=== PATIENT | female | born 1945 | race African-American/Black ===

== ENCOUNTER 2020-08-08 18:44 | Emergency (ER) | payer MEDICARE, SELFPAY ==
[2020-08-08 18:43] VITALS: BP 164/80; PULSE 79; RESP 16; TEMP 37.1; O2SAT 99
--- NOTE | 2020-08-08 20:07 | ED.GENADULT ---
HPI - General Adult General Chief complaint: Extremity Injury, Lower Stated complaint: joint pain, dxed with gout Time Seen by Provider: 08/08/20 18:50 Source: patient Mode of arrival: EMS Limitations: no limitations History of Present Illness HPI narrative: Patient states she was diagnosed with her primary care provider with bilateral knee arthritis or gout and she was prescribed tramadol and prednisone. Patient states she has not yet started the prednisone but she does have it at home. Patient states that she called her primary care provider and was instructed to take 2 tramadol's and a Tylenol extra strength which she did just before EMS brought her to the emergency department. Patient states now her pain is greatly improved and she now wants to go home. Patient denies fever, chills, nausea, vomiting, diarrhea. Patient states she does not feel that she needs blood work for further evaluation in emergency department. Related Data Allergies Allergy/AdvReac Type Severity Reaction Status Date / Time No Known Allergies Allergy Verified 08/08/20 18:49 Review of Systems Review of Systems: Narrative: CONSTITUTIONAL: Denies fever, chills, or sweats. EYES: Denies visual changes, redness, or discharge. ENT: Denies rhinorrhea, congestion, sore throat, or otalgia. CARDIOVASCULAR: Denies chest pain, palpitations, or edema. RESPIRATORY: Denies cough or dyspnea. GASTROINTESTINAL: Denies abdominal pain, nausea, vomiting, or diarrhea. GENITOURINARY: Denies dysuria or hematuria. SKIN: Denies rash or itching. MUSCULOSKELETAL: Bilateral knee pain denies back pain or myalgia. NEUROLOGIC: Denies headache, numbness, dizziness, or weakness. PSYCHIATRIC: Denies anxiety or depression. Exam Narrative: Exam Narrative: GENERAL: Well-appearing, well-nourished, and in no acute distress. HEAD: Normocephalic, atraumatic. EYES: PERRLA and EOMI. CHEST: Clear to auscultation. No respiratory distress. No wheezes rales or rhonchi HEART: Regular rate and rhythm. No murmur heard. Normal peripheral pulses. ABDOMEN: Soft, nontender, nondistended, normal active bowel sounds. EXTREMITIES: Bilateral knees are swollen, erythema not appreciated. Patient does slightly flex and extend the knees. There is no sign of abscess or fluctuance. SKIN: Warm, dry, no rash. NEURO: No focal deficits. Alert and oriented x3. PSYCH: Normal mood and affect. Course Vital Signs Vital signs: Vital Signs Temperature 98.8 F 08/08/20 18:43 Pulse Rate 79 08/08/20 18:43 Respiratory Rate 16 08/08/20 18:43 Blood Pressure 164/80 H 08/08/20 18:43 Pulse Oximetry 99 08/08/20 18:43 Temperature 98.8 F 08/08/20 18:43 Pulse Rate 79 08/08/20 18:43 Respiratory Rate 16 08/08/20 18:43 Blood Pressure 164/80 H 08/08/20 18:43 Pulse Oximetry 99 08/08/20 18:43 Medical Decision Making MDM Narrative Medical decision making narrative: Patient states she took her pain medication as directed by her primary care just before being brought in by the EMS team. Patient states her pain has now greatly improved and she wants to go home. Patient declines blood testing or further evaluation emergency department. Patient states she also has prednisone at home prescribed by her primary care but she has not yet started them. Instructed patient of the need to take her medications as directed by her primary care provider so that she can improve. Patient and her family verbalized understanding and agreement with plan. They deny any other needs or concerns. They agreed to return the patient to the emergency department if she develops any worsening or emergent symptoms. Differential Diagnosis Differential Diagnosis: Gout, arthritis, septic joint, fracture, sprain, strain Vital Signs Vital Signs: Vital Signs Temperature 98.8 F 08/08/20 18:43 Pulse Rate 79 08/08/20 18:43 Respiratory Rate 16 08/08/20 18:43 Blood Pressure 164/80 H 08/08/20 18:43 Pulse Oximetry 99 08/08/20 18
[2020-08-08 20:57] VITALS: BP 159/78; PULSE 74; RESP 20; O2SAT 96
== END 2020-08-08 20:59 | disposition home or self-care (01) ==
PROVIDERS: Emergency Provider Emergency Medicine
DX: M25.562 Pain in left knee (principal); M25.561 Pain in right knee
CPT/HCPCS: 99281

== ENCOUNTER 2023-05-15 11:27 | Emergency (ER) | payer MEDICARE, SELFPAY ==
--- NOTE | ~2023-05-15 | XR_ITS ---
EXAMINATION: XR shoulder RT min 2V DATE: 05/15/2023 14:47 INDICATION: Right shoulder pain. TECHNIQUE: 4 views of right shoulder were obtained. COMPARISON: None. FINDINGS: Bone alignment is normal. No fracture. Glenohumeral joint is normal. There is moderate acro mioclavicular joint osteoarthritis. IMPRESSION: 1. Moderate right acromioclavicular joint osteoarthritis. Reviewed, dictated and finalized at location E.
--- NOTE | ~2023-05-15 | CT_ITS ---
EXAMINATION: CT cervical spine wo con DATE: 05/15/2023 14:52 INDICATION: Neck pain. TECHNIQUE: Computed tomography (CT) of the cervical spine was performed without intravenous contrast. Automated exposure control and iterative reconstruction technique were employed. The dose-length pro duct was 503.54 mGy-cm. COMPARISON: None FINDINGS: There is a 2.2 cm nodule in left thyroid lobe. There is 2 mm anterolisthesis of C5 on C6. V ertebral body heights are normal. There is severely decreased disc height from C3-C4 through C6-C7 wi th endplate remodeling. The following disc levels are specifically discussed: C2-C3: There is mild bilateral uncovertebral joint osteoarthritis. There is moderate right and severe left facet joint osteoarthritis. There is mild left neural foraminal stenosis. There is no central c anal stenosis. C3-C4: There is severe bilateral uncovertebral joint osteoarthritis. There is moderate bilateral face t joint osteoarthritis. There is mild bilateral neural foraminal stenosis. There is moderate central canal stenosis. C4-C5: There is severe bilateral uncovertebral joint osteoarthritis. There is severe bilateral facet joint osteoarthritis. There is mild right and moderate left neural foraminal stenosis. There is moder ate central canal stenosis. C5-C6: There is severe right and moderate left uncovertebral joint osteoarthritis. There is severe bi lateral facet joint osteoarthritis. There is moderate right and mild left neural foraminal stenosis. There is mild central canal stenosis. C6-C7: There is severe bilateral uncovertebral joint osteoarthritis. There is severe bilateral facet joint osteoarthritis. There is mild bilateral neural foraminal stenosis. There is mild central canal stenosis. C7-T1: There is no uncovertebral joint osteoarthritis. There is severe bilateral facet joint osteoart hritis. There is mild bilateral neural foraminal stenosis. There is no central canal stenosis. IMPRESSION: 1. No fracture. 2. Severe cervical spondylosis. Reviewed, dictated and finalized at location E.
[2023-05-15 11:34] VITALS: BP 168/106; PULSE 76; RESP 20; TEMP 36.4; O2SAT 100
[2023-05-15 13:58] VITALS: BP 194/101; PULSE 93; O2SAT 100
--- NOTE | 2023-05-15 14:11 | ED.GENADULT ---
HPI - General Adult General Chief complaint: Fall Stated complaint: fall 1 mo ago, R shoulder/B neck pain Time Seen by Provider: 05/15/23 13:18 Source: patient Mode of arrival: ambulatory Limitations: no limitations History of Present Illness HPI narrative: This is a 77-year-old female who presents to the ED with chief complaint of chronic neck pain and right shoulder pain. Triage note mentions a fall 1 month ago but the patient states that she had her fall over a year ago. She states that she has been dealing with neck pain and chronic right shoulder pain ever since that fall. She states this week it has been hurting her a little bit more. She reports the pain became worse Friday and has been about the same ever since but wanted to get checked out today. She reports neck pain is worsened with leftward and rightward rotation of the neck. Shoulder pain is worsened with range of motion of that shoulder. Denies any recent injuries, trauma or falls. Denies fevers, chills, nausea, numbness, weakness, headache. She is here with her niece who is helping give history and checks up on her at their [facility] community. Related Data Allergies Allergy/AdvReac Type Severity Reaction Status Date / Time No Known Allergies Allergy Verified 05/15/23 14:01 Review of Systems Review of Systems: All systems as dictated in HPI Exam Narrative: GENERAL: Well-appearing, well-nourished, and in no acute distress. HEAD: Normocephalic, atraumatic. EYES: PERRLA and EOMI. ENT: Nares clear, no rhinorrhea or epistaxis. Mucous membranes moist. Oropharynx without tonsillar hypertrophy exudate or other lesions. NECK: Supple. No adenopathy or masses. Negative meningeal signs. CHEST: No respiratory distress. Clear to auscultation. No wheezes rales or rhonchi HEART: Regular rate and rhythm. No murmur heard. Normal peripheral pulses. ABDOMEN: Soft, nontender, nondistended, normal active bowel sounds. MSK: There is tenderness throughout the cervical spine, worse in the right paraspinal muscles. No bony deformities or step-offs. Pain is worsened with leftward and rightward rotation of the neck. no midline thoracic, lumbar, sacral spine tenderness. Right shoulder has tenderness to palpation throughout, worse over the AC joint. Decreased active range of motion due to pain. No swelling of the shoulder. SKIN: Warm, dry, no rash. No erythema, warmth throughout the neck or shoulder. No lesions. No bruising. NEURO: Alert and oriented x3. No focal deficits. PSYCH: Normal mood and affect. Course Vital Signs Vital signs: Vital Signs Temperature 97.5 F L 05/15/23 11:34 Pulse Rate 76 05/15/23 11:34 Respiratory Rate 20 05/15/23 11:34 Blood Pressure 168/106 H 05/15/23 11:34 Pulse Oximetry 100 05/15/23 11:34 Oxygen Delivery Room Air 05/15/23 11:34 Temperature 97.5 F L 05/15/23 11:34 Pulse Rate 72 05/15/23 16:06 Respiratory Rate 18 05/15/23 16:06 Blood Pressure 179/93 H 05/15/23 16:06 Pulse Oximetry 100 05/15/23 16:06 Oxygen Delivery Room Air 05/15/23 11:34 Medical Decision Making MDM Narrative Medical decision making narrative: This is a 77-year-old female who presents to the ED with chief complaint of chronic right neck and shoulder pain ongoing for the past year and worse in the past couple of days. Vitals show elevated blood pressure but otherwise normal. Exam reveals tenderness throughout the neck, worse on the right side. Tenderness to the right shoulder as well. No neurodeficits. CT cervical spine shows diffuse degenerative disc disease. Right shoulder x-ray shows severe arthritis at the right AC joint. Symptoms are certainly consistent with degenerative changes as they are chronic. She has no recent falls or injuries. Instructed to take Tylenol arthritis and follow-up with her primary care doctor. Pt will be discharged in stable condition. Return precautions given and supportive measures dis
[2023-05-15] MEDS: HYDROcodone/acetaminophen (*CRX) 5-325 MG TABLET 1 TAB PO (14:57)
[2023-05-15 16:06] VITALS: BP 179/93; PULSE 72; RESP 18; O2SAT 100
== END 2023-05-15 16:00 | disposition home or self-care (01) ==
PROVIDERS: Emergency Provider Physician Assistant
DX: M50.30 Other cervical disc degeneration, unspecified cervical region (principal); M19.011 Primary osteoarthritis, right shoulder; M48.02 Spinal stenosis, cervical region; M47.816 Spondylosis without myelopathy or radiculopathy, lumbar region
CPT/HCPCS: 72125; 73030; 99284; A9270

== ENCOUNTER 2023-07-04 12:39 | Emergency (ER) | payer MEDICARE, SELFPAY ==
--- NOTE | ~2023-07-04 | XR_ITS ---
EXAMINATION: XR tibia fibula LT 2V INDICATION: Left lower extremity wound TECHNIQUE: Two views of the left tibia and fibula are obtained on four radiographs. COMPARISON: None available FINDINGS: There is no fracture. There is advanced osteoarthritis at the knee and ankle. An enchondrom a is noted in the distal tibia. There is an apparent soft tissue defect medial to the distal tibia wi thout associated underlying osseous abnormality. Calcified atherosclerosis is noted. IMPRESSION: 1. Apparent soft tissue defect medial to the distal tibia without underlying osseous abnormality. Reviewed, dictated and finalized at location F. IMPRESSION: 1. Apparent soft tissue defect medial to the distal tibia without underlying os seous abnormality.
--- NOTE | ~2023-07-04 | XR_ITS ---
EXAMINATION: XR chest 2V 07/04/2023 16:21 INDICATION: Weakness. PROCEDURE: 2 view chest COMPARISON: No prior studies for comparison. FINDINGS: The lungs are clear. The cardiomediastinal silhouette is within normal limits. There are no pleural effusions. There is no pneumothorax suspected. IMPRESSION: 1: NO ACUTE CARDIOPULMONARY DISEASE. Reviewed, dictated and finalized at location A.
[2023-07-04 12:42] VITALS: BP 162/108; PULSE 92; RESP 20; TEMP 36.8; O2SAT 100
--- NOTE | 2023-07-04 15:19 | ECG_ITS ---
Measurements Intervals [place] Rate: 79 P: 62 OH: 186 QRS: -24 QRSD: 88 T: -83 QT: 244 QTc: 280 Interpretive Statements REDUCED ECG QUALITY BECAUSE OF BASELINE ARTIFACT SINUS RHYTHM LOW QRS VOLTAGE IN PRECORDIAL LEADS [QRS DEFLECTION < 1.0 mV IN CHEST LEADS] PREVIOUS ANTERIOR WALL INFARCTION ABNORMAL ECG NO PREVIOUS ECG AVAILABLE FOR COMPARISON Electronically Signed On 07-05-2023 8:47:52 CDT by Tito Baum M.D.
--- NOTE | 2023-07-04 18:55 | ED.GENADULT ---
HPI - General Adult General Chief complaint: Wound/Laceration Stated complaint: leg wound Time Seen by Provider: 07/04/23 18:39 History of Present Illness HPI narrative: Patient is a 77-year-old female with history of arthritis here with multiple complaints including pain with urination, wound on left puentes, right shoulder pain. Patient states that she is intermittently had wounds over her bilateral shins over the last several years. She states that recently she developed a opening in the chronic wound she has in her left puentes. She notes that today it drained a small amount of brown foul-smelling fluid. She denies any recent trauma, no fever or chills. Patient states that her dysuria began yesterday. She notes she is having some burning with urination, denies any rashes. She normally wears depends at home for chronic incontinence. She denies any significant abdominal pain. Denies any flank pain. Finally she is complaining of some right shoulder pain. This has been present for quite some time and it is unchanged. No new trauma. No cough, congestion, fever, chills, chest pain, shortness of breath. Related Data Allergies Allergy/AdvReac Type Severity Reaction Status Date / Time No Known Allergies Allergy Verified 07/04/23 12:40 Review of Systems Review of Systems: All systems reviewed & are unremarkable except as noted in HPI and below Exam Narrative: GENERAL: Well-appearing, well-nourished, and in no acute distress. HEAD: Normocephalic, atraumatic. EYES: PERRLA and EOMI. ENT: Nares clear. Mucous membranes moist. NECK: Supple. CHEST: Clear to auscultation. No respiratory distress. HEART: Regular rate and rhythm. Normal peripheral pulses. ABDOMEN: Soft, nontender, nondistended. EXTREMITIES: Decreased range of motion of the right shoulder due to pain. Tenderness seems to be over the lateral aspect of the shoulder, strong radial pulse, normal sensation to the arm. No evidence of trauma. SKIN: Warm, dry, 2 cm chronic appearing wound over the distal puentes on the left leg. No active draining at this time. No surrounding erythema. NEURO: No focal deficits. Alert and oriented x3. PSYCH: Normal mood and affect. Course Course Emergency Course: Chart review performed. Patient here with multiple complaints. Triage vitals show HTN, otherwise normal. Triage occurred at 12:42. Patient seen evaluated, nontoxic appearing. She appears to have several things going on including a chronic wound on her left leg that may be acutely infected, chronic right shoulder pain, urinary symptoms. Will do UA, basic labs, x-ray of tib-fib. It does appear that she had shoulder and neck imaging within the last 2 months and the pain has been unchanged since that time with no new injuries. I do not believe that additional shoulder imaging is required at this time. CXR negative, tib/fib xray shows soft tissue defect however no underlying osseous abnormality. Urine consistent with UTI with 4+ bacteria, 3+ leukocyte esterases, 4+ bacteria. No prior urine cultures on file. No recent antibiotic use. Will start on keflex which will cover her wound infection and UTI. The results of pertinent diagnostic studies and exam findings were discussed. The patient?s provisional diagnosis and plan of care were discussed with the patient and present family. She will be started on keflex outpatient, first dose given here. The patient and/or present family expressed understanding of the diagnosis and plan. The nurse was instructed to provide written instructions and appropriate follow-up information. The patient understands their need and responsibility to obtain additional follow-up as instructed. The risks of medications administered and prescribed were discussed with the patient and family present. Advised to return if any symptoms worsen. Vital Signs Vital signs: Vital Signs Temperature 98.2 F 07/04/23 12:42 Pulse Rate 92 07/04/23 12:42 Respir
[2023-07-04 18:59] VITALS: BP 163/85; PULSE 86; RESP 18; O2SAT 98
[2023-07-04 20:05] VITALS: BP 134/76; PULSE 72; RESP 22; O2SAT 100
[2023-07-04 20:46] LABS: Basophils Percent Auto 0.6 % (0.2-1.2); Eosinophils Absolute Auto 0.2 K/mm3 (0-0.3); Eosinophils Percent Auto 2.8 % (0-4.4); Hematocrit 34.2 % (37.0-47.0); Hemoglobin 10.3 g/dL (12.0-15.0); Immature Granulocyte Absolute 0.02 K/mm3 (0.00-0.031); Immature Granulocyte Percent A 0.3 % (0-0.5); Lymphocytes Absolute Auto 2.02 K/mm3 (0.9-3.2); Mean Corpuscular HGB Conc 30.1 g/dl (32-36); Mean Corpuscular Hemoglobin 26.5 pg (26-34); Mean Corpuscular Volume 88.1 fl (80-100); Mean Platelet Volume 10.3 fl (7.4-10.4); Monocytes Absolute Auto 0.6 K/mm3 (0.1-0.6); Monocytes Percent Auto 7.6 % (2.6-8.5); Neutrophils Absolute Auto 4.4 K/mm3 (1.3-6.7); Neutrophils Percent Auto 60.7 % (45.5-73.1); Platelet Count Result 192 k/mm3 (150-375); Red Blood Count 3.88 M/mm3 (4.2-5.4); Red Cell Distribution Width 17.2 % (11.5-14.5); White Blood Count 7.2 K/mm3 (4.5-10.0)
[2023-07-04 20:57] LABS: Alanine Aminotransferase 12 U/L (6-35); Albumin Level 4.1 g/dL (3.5-5.1); Alkaline Phosphatase 125 U/L (38-126); Anion Gap 8 mmol/L (8-16); Aspartate Amino Transferase 23 U/L (14-36); Bilirubin,Total 0.9 mg/dL (0.2-1.3); Blood Urea Nitrogen 15 mg/dL (7-17); Calcium 9.7 mg/dL (8.4-10.2); Carbon Dioxide 27 mmol/L (22-30); Chloride 105 mmol/L (98-107); Estimated Glomerular Filt Rate 48; Glucose 102 mg/dL (65-110); Potassium 3.6 mmol/L (3.4-5.0); Sodium 140 mmol/L (137-145)
[2023-07-04] MEDS: ACETAMINOPHEN 500 MG TABLET 1000 MG PO (21:09)
[2023-07-04 21:11] VITALS: BP 161/85; PULSE 88; RESP 16; O2SAT 100
[2023-07-04] MEDS: CEPHALEXIN 500 MG CAPSULE PO (21:44)
[2023-07-04 22:18] LABS: Appearance Urine Turbid (Clear); Bacteria Urine 4+ /hpf; Bilirubin Urine Negative (Negative); Blood Urine 3+ (Negative); Color Urine Yellow (Yellow); Glucose Urine UA Negative (Negative); Ketones Urine Negative (Negative); Leukocyte Esterase Ur 3+ LEU/UL (Negative); Need Manual Microscopic Reviewed; Nitrate Urine Negative (Negative); Non Pathogenic Casts >20; Protein Urine 3+ mg/dL (Negative); RBC Urine 51-100 /hpf (0-2); Specific Grav Ur 1.009 (1.001-1.035); Squamous Epithelial Cell Urine Moderate /hpf (Few); WBC Urine >100 /hpf
[2023-07-04 22:19] LABS: Add Urine Microscopic? YES
[2023-07-04 23:22] VITALS: BP 144/77; PULSE 75; RESP 20; O2SAT 100
== END 2023-07-04 23:24 | disposition home or self-care (01) ==
PROVIDERS: Emergency Medicine; Emergency Provider Student in an Organized Health Care Education/Training Program
DX: S81.802A Unspecified open wound, left lower leg, initial encounter (principal); L08.9 Local infection of the skin and subcutaneous tissue, unspecified; N39.0 Urinary tract infection, site not specified; M25.511 Pain in right shoulder; G89.29 Other chronic pain
CPT/HCPCS: 36415; 71046; 73590; 80053; 81001; 85025; 87086; 87088; 93005; 99284; A9270

== ENCOUNTER 2023-10-30 11:51 | Inpatient (IN) | payer MEDICARE, MEDICAID, SELFPAY ==
[2023-10-30] VITALS (16 sets, daily range): BP systolic 138–167; BP diastolic 52–84; PULSE 70–93; RESP 14–28; TEMP 36.4–36.9; O2SAT 98–100; BMI 47.2
--- NOTE | ~2023-10-30 | US_ITS ---
EXAMINATION: US venous doppler [facility] DATE: 11/02/2023 16:53 INDICATION: Lower extremity swelling, thick blood and prior clots . TECHNIQUE: Grayscale images without and with compression and Doppler images of the bilateral lower ex tremity veins were obtained. COMPARISON: None FINDINGS: The right common femoral vein, profunda (deep) femoral vein, femoral vein, popliteal vein, peroneal v ein, posterior tibial veins, and greater saphenous vein are patent. The left common femoral vein, profunda (deep) femoral vein, femoral vein, popliteal vein, peroneal v ein, posterior tibial veins, and greater saphenous vein are patent. IMPRESSION: Patent bilateral lower extremity veins. No evidence of deep venous thrombosis. Reviewed, dictated and finalized at [facility]. [facility]
--- NOTE | ~2023-10-30 | XR_ITS ---
XR chest 1V portable DATE: 10/30/2023 13:27 INDICATION: Infection, weakness TECHNIQUE: Portable upright AP views on October 30, 2023 at 1320 at 1321 hours COMPARISON: 07/04/2023 2 view chest FINDINGS: Cardiomegaly. Aortic arch calcification. There is pulmonary vascular redistribution suggesting mild pulmonary venous hypertension. The left retrocardiac area is not optimally demonstrated due to underpenetration. Mild left lower lob e infiltrate or atelectasis is not excluded. The lungs otherwise appear clear of infiltrate or consol idation. No pleural effusion. No pneumothorax. Dextroscoliosis and degenerative spurring of the thoracic spine. IMPRESSION: Cardiomegaly, aortic atherosclerosis Cannot exclude or confirm mild infiltrate or atelectasis in the left lower lobe; consider PA and late ral chest radiographs for more optimal evaluation Reviewed, dictated and finalized at [facility]. R D INTERN IMPRESSION: Cardiomegaly, aortic atherosclerosis Cannot exclude or confirm mild infiltrate or atelectasis in the left lower lobe ; consider PA and lateral chest radiographs for more optimal evaluation
--- NOTE | ~2023-10-30 | CT_ITS ---
EXAMINATION: CT abdomen pelvis w con DATE: 10/30/2023 15:54 INDICATION: Decubitus ulcer. Perirectal abscess. TECHNIQUE: Computed tomography (CT) of the abdomen and pelvis was performed with 100 CC Omnipaque 350 intravenous contrast. Automated exposure control and iterative reconstruction technique were employe d. Exam dose: 1437.51 mGy-cm total exam DLP. COMPARISON: None. FINDINGS: Bibasilar atelectasis, left lower lobe greater than right. Cardiomegaly. No pericardial or pleural effusion. There are multiple small stones in the dependent aspect of the gallbladder lumen. No gallbladder wall thickening or pericholecystic fluid or fat stranding. No bile duct or pancreatic duct dilatation. No hepatic, pancreatic, splenic, and adrenal or renal space-occupying mass lesion is detected. Normal caliber of the abdominal aorta. No intraperitoneal or retroperitoneal or pelvic mass lesion or adenopathy or ascites. Diverticulosis of the colon; no CT evidence of diverticulitis. No bowel obstruction, bowel wall thick ening, pneumatosis or intraperitoneal free air is detected. Pelvic floor dysfunction. Status post hysterectomy. Suggestion of small bilateral decubitus ulcers of the buttocks; recommend correlation with direct phy sical examination. No abscess is identified. There is multilevel degenerative disc disease, moderate at L1-2, severe at L3-4, L4-5 and L5-S1. Ther e is fusion at the L2 and L3 vertebral bodies and posterior elements. IMPRESSION: Suggestion of small bilateral decubitus ulcers in the buttocks; recommend correlation wi th clinical examination Diverticulosis of the colon; no evidence of diverticulitis Status post hysterectomy Cholelithiasis Reviewed, dictated and finalized at [facility]. Reviewed, dictated and finalized at [facility]. FARM HELPER IMPRESSION: Suggestion of small bilateral decubitus ulcers in the buttocks; re commend correlation with clinical examination Diverticulosis of the colon; no evidence of diverticulitis Status post hysterectomy Cholelithiasis
--- NOTE | 2023-10-30 13:06 | ED.GENADULT ---
HPI - General Adult General Chief complaint: Unspecified Stated complaint: failure to thnrive Time Seen by Provider: 10/30/23 12:03 History of Present Illness HPI narrative: Patient is an 78-year-old female who presents to the emergency department this afternoon from home when a neighbor called EMS due to concern that the patient is failing to thrive. When asked about this, patient states that she does live at home alone but has a niece that checks on her every day. Patient states that it was the niece who called. Patient was found to be covered in feces and urine with sores throughout her but and back of her bilateral thighs. Patient is currently denying any symptoms or pain but states that she has been feeling down lately. She is denying any chest pain or shortness of breath. There are no other modifying, alleviating or precipitating factors that. Remainder of the history of present illness and review of system is negative unless stated otherwise within the limitations of the patient being a poor historian. Related Data Allergies Allergy/AdvReac Type Severity Reaction Status Date / Time No Known Allergies Allergy Verified 10/30/23 12:31 Review of Systems Review of Systems: All systems are reviewed and are negative unless stated otherwise in the HPI. PMFSH Comments Patient denies any significant past medical or surgical history, denies any tobacco use or alcohol abuse, denies any illicit drug use. Unsure how accurate that her vision is as patient has been our facility in past does not appear to be a good historian. Exam Narrative: General: Alert, awake, afebrile, in no acute distress, obese, covered in feces and urine, strong malodor. HEENT: PERRL, no rhinorrhea, no post nasal drip, oropharynx clear. Neck: Trachea midline, no JVD, no lymphadenopathy. Cardiovascular: Regular rate and rhythm, no murmurs, rubs or gallops, no peripheral edema. Respiratory: Clear to auscultation bilaterally, no tachypnea, no wheezing, no rhonchi, no rubs, no respiratory distress. Abdomen: Soft, nontender, nondistended, no rebound, no guarding, no peritoneal signs. Genitals: Multiple stage 1/2 decubitus ulcerations throughout the patient's perirectal region, buttocks, and the back of her bilateral thighs. Musculoskeletal: No joint swelling or deformity, normal muscle tone. Skin: Skin covered in feces and urine, multiple skin sores throughout the patient's part and the back of her bilateral thighs with small stage 1/2 decubitus ulceration. Psychiatric: Alert and oriented, normal behavior and judgment for situation. Neurological: Alert and oriented to person, place, and time. Follows all commands. No focal deficits, speech is clear and fluent. Course Vital Signs Vital signs: Vital Signs Temperature 97.6 F 10/30/23 11:51 Pulse Rate 81 10/30/23 11:51 Respiratory Rate 20 10/30/23 11:51 Blood Pressure 167/69 H 10/30/23 11:51 Pulse Oximetry 98 10/30/23 11:51 Oxygen Delivery Room Air 10/30/23 11:51 Temperature 97.6 F 10/30/23 11:51 Pulse Rate 75 10/30/23 16:30 Respiratory Rate 21 H 10/30/23 16:30 Blood Pressure 150/84 H 10/30/23 16:30 Pulse Oximetry 100 10/30/23 16:30 Oxygen Delivery Room Air 10/30/23 11:51 Medical Decision Making MDM Narrative Medical decision making narrative: The patient was evaluated by myself in the emergency department. History is obtained from patient who is an independent historian and physical exam was performed. External medical records were reviewed at this time. IV was established and pertinent tests were ordered. Patient was started on IV fluids at a rate of 150 cc/hour. Laboratory results obtained revealing white blood cell count of 16. At this time, patient does meet SIRS criteria given her white blood cell count and respiratory rate. Hemoglobin 8.6 with an MCV of 90. Patient's hemoglobin was noted to be 10 on July 04, 2023. Creatinine 1.4 with a BUN of 2
[2023-10-30 13:22] LABS: Basophils Percent Auto 0.1 % (0.2-1.2); Hematocrit 28.8 % (37.0-47.0); Hemoglobin 8.6 g/dL (12.0-15.0); Immature Granulocyte Absolute 0.24 K/mm3 (0.00-0.031); Immature Granulocyte Percent A 1.5 % (0-0.5); Lymphocytes Absolute Auto 0.67 K/mm3 (0.9-3.2); Lymphocytes Percent Auto 4.2 % (18.3-44.2); Mean Corpuscular HGB Conc 29.9 g/dl (32-36); Mean Corpuscular Hemoglobin 27.1 pg (26-34); Mean Corpuscular Volume 90.9 fl (80-100); Mean Platelet Volume 9.9 fl (7.4-10.4); Monocytes Absolute Auto 0.6 K/mm3 (0.1-0.6); Monocytes Percent Auto 3.8 % (2.6-8.5); Neutrophils Absolute Auto 14.5 K/mm3 (1.3-6.7); Neutrophils Percent Auto 90.4 % (45.5-73.1); Nucleated Red Blood Cells Perc 0.1 % (0.0-0.2); Platelet Count Result 229 k/mm3 (150-375); Red Blood Count 3.17 M/mm3 (4.2-5.4); Red Cell Distribution Width 15.1 % (11.5-14.5)
[2023-10-30] MEDS: SODIUM CHLORIDE 0.9% IV 1,000 ML 150 ML IV CONT (13:24)
[2023-10-30 13:32] LABS: Lactic Acid Reflex 2.2 mmol/L (0.7-2.0)
[2023-10-30 13:33] LABS: Alanine Aminotransferase 16 U/L (6-35); Albumin Level 3.4 g/dL (3.5-5.1); Alkaline Phosphatase 136 U/L (38-126); Anion Gap 9 mmol/L (8-16); Aspartate Amino Transferase 43 U/L (14-36); Bilirubin,Total 1.2 mg/dL (0.2-1.3); Blood Urea Nitrogen 21 mg/dL (7-17); Calcium 10.4 mg/dL (8.4-10.2); Carbon Dioxide 24 mmol/L (22-30); Chloride 110 mmol/L (98-107); Creatine Kinase 677 U/L (30-135); Estimated CRCL calculation 33 ml/min; Estimated Glomerular Filt Rate 44; Glucose 120 mg/dL (65-110); Magnesium 2.1 mg/dL (1.6-2.3); Potassium 3.4 mmol/L (3.4-5.0); Sodium 143 mmol/L (137-145)
[2023-10-30 13:42] LABS: Hypochromasia 1+ (NORMAL); Platelet Estimate Adequate (Adequate); Schistocytes None Seen (NORMAL)
[2023-10-30 13:51] LABS: Appearance Urine Cloudy (Clear); Bacteria Urine 4+ /hpf; Bilirubin Urine Negative (Negative); Blood Urine 1+ (Negative); Color Urine Yellow (Yellow); Glucose Urine UA Negative (Negative); Ketones Urine Negative (Negative); Leukocyte Esterase Ur 2+ LEU/UL (Negative); Nitrate Urine Negative (Negative); Non Pathogenic Casts 0-2; Protein Urine 2+ mg/dL (Negative); Specific Grav Ur 1.013 (1.001-1.035); Squamous Epithelial Cell Urine None seen /hpf (Few); WBC Urine 51-100 /hpf; pH Urine 7.5 (5.0-9.0)
[2023-10-30 13:53] LABS: Add Urine Microscopic? YES
--- NOTE | 2023-10-30 15:41 | PC.NURSE ---
Pt to CT via stretcher at this time
[2023-10-30 16:19] LABS: Reflex Lactic Acid Yes or No Add Lactic
[2023-10-30] MEDS: AZITHROMYCIN 500 MG/NS 250 ML 500 MG/250 ML BAG 250 MG IVPB (16:28)
--- NOTE | 2023-10-30 17:34 | PC.NURSE ---
Meal tray ordered for pt
[2023-10-30 19:16] LABS: Lactic Acid 1.4 mmol/L (0.7-2.0)
--- NOTE | 2023-10-30 19:38 | ADMGEN ---
This patient, Hans Corey, was admitted to [facility] Surg Room 321-01. Patient/family oriented to hospital policies and general routines including ID bracelet, bed and alarms, visiting hours, pain management, procedures, bathroom and other care routines, personal items, smoking policy, room service/diet, and visiting hours. Information on how to activate the Rapid Response Team has been discussed. Patient/Family are encouraged to report perceived risks to care and to ask questions if they do not understand what they are told or what they should do.
--- NOTE | 2023-10-30 22:58 | PM.IMHP ---
H&P: HPI History of Present Illness Date/Time: 10/30/23 22:58 Chief Complaint: ?being down lately? Narrative: 78-year-old female with a past medical history of essential hypertension, asthma, glaucoma, uterine cancer status post hysterectomy and morbid obesity who presented to the ER from home via EMS due to family members concern of patient ?failing to thrive?. The patient at lives at home alone but has any state checks on her every day. When EMS arrived at the patient's home [place] out strongly of feces and urine. The patient was found to be crusted in urine stool. She had multiple sores on her buttocks and thighs. At the time of my evaluation the patient would arouse to verbal stimuli both falling asleep. She seemed to be aware that she was not at home but could not state she was in the hospital or which hospital she was at. She could not state the month or year. She would attempt to answer direct questions but was a poor historian. She did follow simple commands. She was unable to give significant history. Does history was obtained from nursing records and EMS and ER records. The patient denied any significant symptoms for ER staff but stated that she was just feeling down lately. She denies feeling ill. She states that she has 4 children but cannot give me details regarding where they live for other details. She denies ever having smoked and I could not get the remainder of her social history. Review of Systems Review of Systems: Difficult to obtain due to patient's ability to provide history PMFSH Past Medical History Medical History (Updated 10/30/23 @ 23:21 by Susie Barnes DO) Anxiety and depression Asthma Chronic anemia CKD (chronic kidney disease) stage 3, GFR 30-59 ml/min Glaucoma Morbid obesity with BMI of 45.0-49.9, adult Uterine cancer Surgical History Surgical History (Updated 10/30/23 @ 23:13 by Susie Barnes DO) History of total hysterectomy with bilateral salpingo-oophorectomy (BSO) Status post cataract extraction of both eyes with insertion of intraocular lens Family History Family History (Updated 10/30/23 @ 23:13 by Susie Barnes DO) Other Unknown family medical history Social History Social History (Updated 10/30/23 @ 23:15 by Susie Barnes DO) Social History: The patient lives in her own apartment and ambulates with a walker. She has a niece that lives nearby was also elderly and uses a walker. She is a lifelong nonsmoker. She stated that she used to be but cannot tell me if she is or . She states that she raised 4 children. Remainder of social history is limited. Code status: Presumed to be full code as her cousin told nursing staff to do everything. Smoking status: Never smoker Alcohol intake: never Substance use: never Do You Feel Safe in your Home?: Yes Lack of Transportation: No Lack of Food: Sometimes True Current Housing: I Have Housing Concerned About Future Housing: No Difficulty Paying Gas/Electric Bills: No Difficulty Paying for Meds: No Currently Unemployed: No Education: High School Diploma/GED Difficulty w/ Childcare or Family Care: No Spiritual care concerns: No Meds Home Medications and Allergies Home Medications Medication Instructions Recorded Confirmed Type furosemide 20 mg tablet 20 mg PO DAILY 10/30/23 10/30/23 History tramadol 50 mg tablet 50 mg PO Q6H PRN Pain 10/30/23 10/30/23 History Allergies Allergy/AdvReac Type Severity Reaction Status Date / Time No Known Allergies Allergy Verified 10/30/23 12:31 Vital Signs Vital Signs - 24 hr 10/30/23 11:51 10/30/23 12:40 10/30/23 13:27 Temperature 97.6 F Pulse Rate 81 83 80 Respiratory Rate 20 23 H Blood Pressure 167/69 H 163/69 H Pulse Oximetry 98 100 Oxygen Delivery Room Air 10/30/23 14:38 10/30/23 16:30 10/30/23 17:31 Temperature Pulse Rate 71 75 80 Respiratory Rate 17 21 H 22
[2023-10-30 23:27] LABS: Reticulocyte Hemoglobin Conten 25.6 pg (28.2-35.7); Reticulocyte Percent 1.96 % (0.7-4.3); Reticulocytes Absolute 0.06 M/mm3 (0.02-0.1)
[2023-10-30 23:31] LABS: Iron 28 ug/dL (37-170)
[2023-10-30 23:40] LABS: Percent Iron Saturation 13 % (20-50)
[2023-10-30] MEDS: SODIUM CHLORIDE 0.9% IV 1,000 ML 100 ML IV CONT (23:48)
--- NOTE | 2023-10-31 | ECHO_ITS ---
Patient Info Name: Hans Corey Age: 78 years : 1945 Gender: Female Ht: 60 in Wt: 242 lbs BSA: 2.23 m2 HR: 79 bpm BP: 139 / 56 mmHg Heart Rhythm: Sinus Rhythm Technical Quality: Fair Exam Date: 10/31/2023 1:49 PM Exam Location: Echo Lab Patient Status: Inpatient Admit Date: 10/30/2023 Staff Ordering Physician: Yoan Casas APRN Student Life Advisor: Radha Moncada RDCS Attending Provider: Jeff Soto MD Referring Physician: Augusto WELLS; Exam Type: CA echo doppler color flow Study Info Indications - failure to thrive, prior history taking furosemide Complete two-dimensional, color flow and Doppler transthoracic echocardiogram is performed. Summary 1. Complete two-dimensional, color flow and Doppler transthoracic echocardiogram is performed. 2. Mild concentric left ventricular hypertrophy preserved systolic function and grade 1 diastolic noncompliance. 3. Mild sclerosis of the aortic valve with well maintained leaflet separation. 4. Small amount of tricuspid regurgitation. Left Ventricle Left ventricular chamber dimension is normal. Left ventricular systolic function is normal, estimated at 60-65%. There is mild concentric increased left ventricular wall thickness. The left ventricular diastolic function is grade I diastolic dysfunction. Right Ventricle Right ventricular chamber dimension is normal. Left Atria Left atrial chamber dimension is normal. Right Atria Right atrial chamber dimension is normal. Aortic Valve The aortic valve is trileaflet. There is mild aortic valve sclerosis. Pulmonic Valve The pulmonic valve is normal. Mitral Valve The mitral valve has normal leaflets. Tricuspid Valve The tricuspid valve leaflets are normal. There is mild tricuspid valve regurgitation. Pericardium/Pleural The pericardium appears normal. Aorta The aortic root size at the sinus of Valsalva is normal. Left Ventricular Outflow Tract Name Value Normal LVOT 2D LVOT Diameter 2.0 cm LVOT Doppler LVOT Peak Gradient 5 mmHg LVOT Mean Gradient 3 mmHg LVOT VTI 26 cm LVOT VTI/AV VTI Ratio 0.7 LVOT Stroke Volume 78 ml LVOT CO 5.5 l/min LVOT CI 2.4 l/min/m2 Pulmonic Valve Name Value Normal RVOT Doppler RVOT Peak Gradient 3 mmHg PV Doppler PV Peak Gradient 5 mmHg Mitral Valve Name Value Normal MV Doppler MV Peak Gradient 12 mmHg
[2023-10-31 00:38] LABS: Folic Acid 4.5 ng/mL (2.76->20)
[2023-10-31 05:07] VITALS: BP 139/56; PULSE 79; RESP 18; TEMP 36.5; O2SAT 97
[2023-10-31] MEDS: SODIUM CHLORIDE 0.9% IV 1,000 ML 100 ML IV CONT ×2 (07:00→14:46)
[2023-10-31 07:28] LABS: Basophils Percent Auto 0.2 % (0.2-1.2); Eosinophils Absolute Auto 0.3 K/mm3 (0-0.3); Eosinophils Percent Auto 1.6 % (0-4.4); Hematocrit 27.3 % (37.0-47.0); Hemoglobin 8.2 g/dL (12.0-15.0); Immature Granulocyte Percent A 0.6 % (0-0.5); Lymphocytes Absolute Auto 1.32 K/mm3 (0.9-3.2); Lymphocytes Percent Auto 8.2 % (18.3-44.2); Mean Corpuscular Hemoglobin 27.1 pg (26-34); Mean Corpuscular Volume 90.1 fl (80-100); Mean Platelet Volume 9.9 fl (7.4-10.4); Monocytes Absolute Auto 0.6 K/mm3 (0.1-0.6); Monocytes Percent Auto 3.4 % (2.6-8.5); Neutrophils Absolute Auto 13.8 K/mm3 (1.3-6.7); Nucleated Red Blood Cells Perc 0.2 % (0.0-0.2); Platelet Count Result 198 k/mm3 (150-375); Red Blood Count 3.03 M/mm3 (4.2-5.4); Red Cell Distribution Width 15.1 % (11.5-14.5)
[2023-10-31 07:37] LABS: Alanine Aminotransferase 14 U/L (6-35); Albumin Level 2.8 g/dL (3.5-5.1); Alkaline Phosphatase 123 U/L (38-126); Anion Gap 5 mmol/L (8-16); Aspartate Amino Transferase 38 U/L (14-36); Bilirubin,Total 0.8 mg/dL (0.2-1.3); Blood Urea Nitrogen 18 mg/dL (7-17); Calcium 9.6 mg/dL (8.4-10.2); Carbon Dioxide 27 mmol/L (22-30); Chloride 112 mmol/L (98-107); Creatine Kinase 417 U/L (30-135); Estimated CRCL calculation 41 ml/min; Estimated Glomerular Filt Rate 58; Glucose 82 mg/dL (65-110); Magnesium 2.1 mg/dL (1.6-2.3); Phosphorus 2.9 mg/dL (2.5-4.5); Potassium 3.2 mmol/L (3.4-5.0); Sodium 144 mmol/L (137-145)
[2023-10-31] MEDS: ENOXAPARIN 30 MG/0.3 ML SYRINGE SUB-Q ×2 (09:29→21:34)
[2023-10-31] MEDS: TOLNAFTATE 1% POWDER 45 GM BTL 1 APPLIC TOPICAL ×2 (09:30→21:34)
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
[2023-10-31 13:11] VITALS: BMI 47.2
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
[2023-10-31] MEDS: POTASSIUM CHLORIDE 20 MEQ ER TABLET 40 MEQ PO (18:14)
[2023-10-31] MEDS: FERROUS SULFATE 325 MG TABLET DR PO (18:14)
[2023-10-31 22:00] VITALS: BP 155/75; PULSE 94; RESP 22; TEMP 36.6; O2SAT 100
[2023-11-01] MEDS: traMADol HCL (*CRX) 50 MG TABLET PO ×3 (03:00→20:29)
[2023-11-01] MEDS: SODIUM CHLORIDE 0.9% IV 1,000 ML 100 ML IV CONT (05:17)
[2023-11-01 06:00] VITALS: BP 155/76; PULSE 83; RESP 20; TEMP 36.6; O2SAT 98
[2023-11-01 06:34] LABS: Basophils Percent Auto 0.3 % (0.2-1.2); Eosinophils Absolute Auto 0.3 K/mm3 (0-0.3); Eosinophils Percent Auto 2.7 % (0-4.4); Hematocrit 25.4 % (37.0-47.0); Hemoglobin 7.5 g/dL (12.0-15.0); Lymphocytes Absolute Auto 1.48 K/mm3 (0.9-3.2); Lymphocytes Percent Auto 14.7 % (18.3-44.2); Mean Corpuscular HGB Conc 29.5 g/dl (32-36); Mean Corpuscular Hemoglobin 26.6 pg (26-34); Mean Corpuscular Volume 90.1 fl (80-100); Monocytes Absolute Auto 0.4 K/mm3 (0.1-0.6); Monocytes Percent Auto 4.4 % (2.6-8.5); Neutrophils Absolute Auto 7.7 K/mm3 (1.3-6.7); Neutrophils Percent Auto 76.9 % (45.5-73.1); Nucleated Red Blood Cells Perc 0.4 % (0.0-0.2); Platelet Count Result 168 k/mm3 (150-375); Red Blood Count 2.82 M/mm3 (4.2-5.4); Red Cell Distribution Width 14.9 % (11.5-14.5)
[2023-11-01 06:44] LABS: Albumin Level 2.6 g/dL (3.5-5.1); Anion Gap 6 mmol/L (8-16); Blood Urea Nitrogen 15 mg/dL (7-17); Calcium 9.1 mg/dL (8.4-10.2); Carbon Dioxide 24 mmol/L (22-30); Chloride 113 mmol/L (98-107); Estimated CRCL calculation 41 ml/min; Estimated Glomerular Filt Rate 58; Glucose 82 mg/dL (65-110); Magnesium 1.9 mg/dL (1.6-2.3); Phosphorus 2.8 mg/dL (2.5-4.5); Sodium 143 mmol/L (137-145)
[2023-11-01 07:26] LABS: Hypochromasia 1+ (NORMAL); Platelet Estimate Adequate (Adequate); Schistocytes None Seen (NORMAL)
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
[2023-11-01] MEDS: ENOXAPARIN 30 MG/0.3 ML SYRINGE SUB-Q ×2 (09:14→20:25)
[2023-11-01] MEDS: POTASSIUM CHLORIDE 20 MEQ ER TABLET 40 MEQ PO (09:14)
[2023-11-01] MEDS: ACETAMINOPHEN 500 MG TABLET 1000 MG PO (09:14)
[2023-11-01] MEDS: TOLNAFTATE 1% POWDER 45 GM BTL 1 APPLIC TOPICAL ×2 (09:15→20:25)
[2023-11-01] MEDS: FERROUS SULFATE 325 MG TABLET DR PO ×2 (09:15→17:13)
[2023-11-01] MEDS: POTASSIUM CHLORIDE INJ 40 MEQ in SODIUM CHLORIDE 0.9% IV 500 ML 130 MEQ IVPB (09:15)
[2023-11-01 14:00] VITALS: BP 148/80; PULSE 90; RESP 18; TEMP 36.7; O2SAT 97
[2023-11-01 16:29] LABS: Potassium 3.9 mmol/L (3.4-5.0)
[2023-11-01 21:18] VITALS: BP 147/65; PULSE 85; RESP 22; TEMP 36.6; O2SAT 100
[2023-11-02 06:00] VITALS: BP 152/87; PULSE 94; RESP 20; TEMP 36.4; O2SAT 99
[2023-11-02 06:19] LABS: Basophils Percent Auto 0.4 % (0.2-1.2); Eosinophils Absolute Auto 0.4 K/mm3 (0-0.3); Eosinophils Percent Auto 4.3 % (0-4.4); Hematocrit 27.9 % (37.0-47.0); Hemoglobin 8.5 g/dL (12.0-15.0); Immature Granulocyte Absolute 0.07 K/mm3 (0.00-0.031); Immature Granulocyte Percent A 0.8 % (0-0.5); Lymphocytes Absolute Auto 1.93 K/mm3 (0.9-3.2); Lymphocytes Percent Auto 23.2 % (18.3-44.2); Mean Corpuscular HGB Conc 30.5 g/dl (32-36); Mean Corpuscular Volume 88.6 fl (80-100); Mean Platelet Volume 10.1 fl (7.4-10.4); Monocytes Absolute Auto 0.4 K/mm3 (0.1-0.6); Neutrophils Absolute Auto 5.5 K/mm3 (1.3-6.7); Neutrophils Percent Auto 66.3 % (45.5-73.1); Nucleated Red Blood Cells Absolute Auto 0.1 K/mm3 (0.0-0.012); Nucleated Red Blood Cells Perc 0.7 % (0.0-0.2); Platelet Count Result 193 k/mm3 (150-375); Red Blood Count 3.15 M/mm3 (4.2-5.4); White Blood Count 8.3 K/mm3 (4.5-10.0)
[2023-11-02 06:36] LABS: Albumin Level 2.9 g/dL (3.5-5.1); Anion Gap 6 mmol/L (8-16); Blood Urea Nitrogen 14 mg/dL (7-17); Calcium 9.3 mg/dL (8.4-10.2); Carbon Dioxide 24 mmol/L (22-30); Chloride 110 mmol/L (98-107); Estimated CRCL calculation 41 ml/min; Estimated Glomerular Filt Rate 58; Glucose 83 mg/dL (65-110); Magnesium 1.9 mg/dL (1.6-2.3); Phosphorus 2.7 mg/dL (2.5-4.5); Potassium 4.3 mmol/L (3.4-5.0); Sodium 140 mmol/L (137-145)
[2023-11-02] MEDS: FERROUS SULFATE 325 MG TABLET DR PO ×2 (10:09→17:02)
[2023-11-02] MEDS: traMADol HCL (*CRX) 50 MG TABLET PO ×3 (10:09→20:26)
[2023-11-02] MEDS: ENOXAPARIN 30 MG/0.3 ML SYRINGE SUB-Q ×2 (10:10→20:27)
[2023-11-02] MEDS: TOLNAFTATE 1% POWDER 45 GM BTL 1 APPLIC TOPICAL ×2 (10:14→20:27)
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
[2023-11-02 11:35] VITALS: O2SAT 97
[2023-11-02 14:00] VITALS: BP 155/90; PULSE 90; RESP 16; TEMP 36.4; O2SAT 100
[2023-11-02 22:00] VITALS: PULSE 74; RESP 18; TEMP 36.9; O2SAT 100
[2023-11-03 00:26] VITALS: BP 175/79; PULSE 91
[2023-11-03 06:30] LABS: Basophils Percent Auto 0.6 % (0.2-1.2); Eosinophils Absolute Auto 0.3 K/mm3 (0-0.3); Eosinophils Percent Auto 4.6 % (0-4.4); Hematocrit 26.8 % (37.0-47.0); Hemoglobin 8.2 g/dL (12.0-15.0); Immature Granulocyte Absolute 0.09 K/mm3 (0.00-0.031); Immature Granulocyte Percent A 1.2 % (0-0.5); Lymphocytes Absolute Auto 1.56 K/mm3 (0.9-3.2); Lymphocytes Percent Auto 21.5 % (18.3-44.2); Mean Corpuscular HGB Conc 30.6 g/dl (32-36); Mean Corpuscular Hemoglobin 26.9 pg (26-34); Mean Corpuscular Volume 87.9 fl (80-100); Mean Platelet Volume 9.8 fl (7.4-10.4); Monocytes Absolute Auto 0.5 K/mm3 (0.1-0.6); Monocytes Percent Auto 6.8 % (2.6-8.5); Neutrophils Absolute Auto 4.7 K/mm3 (1.3-6.7); Neutrophils Percent Auto 65.3 % (45.5-73.1); Nucleated Red Blood Cells Perc 0.6 % (0.0-0.2); Platelet Count Result 182 k/mm3 (150-375); Red Blood Count 3.05 M/mm3 (4.2-5.4); Red Cell Distribution Width 14.6 % (11.5-14.5); White Blood Count 7.3 K/mm3 (4.5-10.0)
[2023-11-03 06:35] VITALS: BP 169/81; PULSE 86; RESP 20; TEMP 36.8; O2SAT 94
[2023-11-03 06:47] LABS: Albumin Level 2.6 g/dL (3.5-5.1); Anion Gap 1 mmol/L (8-16); Blood Urea Nitrogen 13 mg/dL (7-17); Calcium 8.8 mg/dL (8.4-10.2); Carbon Dioxide 28 mmol/L (22-30); Chloride 107 mmol/L (98-107); Estimated CRCL calculation 41 ml/min; Estimated Glomerular Filt Rate 58; Glucose 82 mg/dL (65-110); Magnesium 1.8 mg/dL (1.6-2.3); Potassium 3.7 mmol/L (3.4-5.0); Sodium 136 mmol/L (137-145)
[2023-11-03] MEDS: TOLNAFTATE 1% POWDER 45 GM BTL 1 APPLIC TOPICAL (09:30)
[2023-11-03] MEDS: ACETAMINOPHEN 500 MG TABLET 1000 MG PO (09:31)
[2023-11-03] MEDS: traMADol HCL (*CRX) 50 MG TABLET PO (09:32)
[2023-11-03] MEDS: CEPHALEXIN 500 MG CAPSULE PO ×2 (09:32→17:19)
[2023-11-03] MEDS: FERROUS SULFATE 325 MG TABLET DR PO ×2 (09:32→17:19)
--- NOTE | 2023-11-03 09:42 | PM.DS ---
DS: Admitting Diagnosis Discharge Date 11/03/2023 Admitting Diagnosis Sepsis, abnormal urinalysis, acute on chronic anemia, adult failure to thrive, morbid obesity, decubitus ulcer, rhabdomyolysis, urinary incontinence, lactic acidosis, hypercalcemia DS: Discharge Diagnosis Discharge Diagnosis (1) Sepsis: Qualifiers: Sepsis acute organ dysfunction status: without acute organ dysfunction Sepsis type: sepsis due to unspecified organism Qualified Code(s): A41.9 - Sepsis, unspecified organism Code(s): A41.9 - Sepsis, unspecified organism Status: Acute (2) Abnormal urinalysis: Code(s): R82.90 - Unspecified abnormal findings in urine Status: Acute (3) Acute on chronic anemia: Code(s): D64.9 - Anemia, unspecified Status: Acute (4) Adult failure to thrive: Code(s): R62.7 - Adult failure to thrive Status: Acute (5) Decubitus ulcer: Qualifiers: Pressure injury location: sacral region Pressure injury stage: unspecified pressure injury stage Qualified Code(s): L89.159 - Pressure ulcer of sacral region, unspecified stage Code(s): L89.90 - Pressure ulcer of unspecified site, unspecified stage Status: Acute (6) Rhabdomyolysis: Qualifiers: Rhabdomyolysis type: non-traumatic Qualified Code(s): M62.82 - Rhabdomyolysis Code(s): M62.82 - Rhabdomyolysis Status: Acute (7) CKD (chronic kidney disease) stage 3, GFR 30-59 ml/min: Qualifiers: Chronic kidney disease stage 3 subtype: stage 3b (GFR 30-44) Qualified Code(s): N18.32 - Chronic kidney disease, stage 3b Code(s): N18.30 - Chronic kidney disease, stage 3 unspecified Status: Acute (8) Urinary incontinence: Qualifiers: Urinary Incontinence type: unspecified incontinence Qualified Code(s): R32 - Unspecified urinary incontinence Code(s): R32 - Unspecified urinary incontinence Status: Acute (9) Acidosis, lactic: Code(s): E87.20 - Acidosis, unspecified Status: Acute (10) Hypercalcemia: Code(s): E83.52 - Hypercalcemia Status: Acute (11) Morbid obesity with BMI of 45.0-49.9, adult: Code(s): E66.01 - Morbid (severe) obesity due to excess calories; Z68.42 - Body mass index [BMI] 45.0-49.9, adult Status: Acute DS: Summary Hospital Course Hospital Course: This is an 78-year-old female patient who is admitted to the hospital for sepsis found to urine source of infection retention and spill over incontinence. Department of aging was contacted as patient was bed confined at home for months and was soiled with caked on feces and urine on arrival. Patient complained of pain all over, especially left toes. Toenails were extremely long and got caught on boots causing pain. PT/OT assessed patient but she is not mobile out of bed. Specialty mattress used. Tovar in place for retention and incontinence with wounds. Topical treatments for yeast/wounds. Department of aging agrees with SNF placement, patient refused to go to [facility] where she was accepted. Acceptance to [facility] obtained and bed available. Patient discharged today. Status at Discharge Cognitive/behavioral status at discharge: Awake alert confused at what appears to be baseline status Functional status at discharge: bed bound Overall status at discharge: patient is not back to baseline Time Spent with Patient Time attestation: Total time spent providing and/or coordinating discharge services: 40 minutes Time spent: Greater than 30 minutes Exam Narrative: GENERAL: Morbidly obese chronically ill-appearing elderly female supine in bed HEAD: Normocephalic, atraumatic. ENT:? Dry mucous membranes CHEST: Clear to auscultation.? No respiratory distress. HEART: Regular rate and rhythm. ? Normal peripheral pulses. ABDOMEN: Soft, nontender, morbidly obese, nondistended. GENITOURINARY: Tovar catheter placed for draining cloudy chandler u
[2023-11-03 13:20] VITALS: BMI 10.0
[2023-11-03 14:00] VITALS: BP 147/65; PULSE 82; RESP 18; TEMP 36.7; O2SAT 97
[2023-11-03] MEDS: ENOXAPARIN 30 MG/0.3 ML SYRINGE SUB-Q (14:44)
[2023-11-03] MEDS: amLODIPine BESYLATE 5 MG TABLET PO (14:45)
--- NOTE | 2023-11-03 19:43 | PC.NURSE ---
Pt was discharged per EMS to [facility]. Pt had all belongs and report was called to [facility]. Pt's IV was removed and pt was cleaned before she left.
== END 2023-11-03 19:45 | DRG 871 ==
LOC: ANHED 16:04 → ANH3MEDSUR 18:29
PROVIDERS: Internal Medicine; Admitting Provider Internal Medicine; Emergency Provider Emergency Medicine; Visit Provider Nurse Practitioner
DX: A41.9 Sepsis, unspecified organism (principal); L89.153 Pressure ulcer of sacral region, stage 3; L89.43 Pressure ulcer of contiguous site of back, buttock and hip, stage 3; N39.0 Urinary tract infection, site not specified; M62.82 Rhabdomyolysis; Z68.42 Body mass index [BMI] 45.0-49.9, adult; B96.20 Unspecified Escherichia coli [E. coli] as the cause of diseases classified elsewhere; J45.909 Unspecified asthma, uncomplicated; D63.1 Anemia in chronic kidney disease; E86.0 Dehydration; E83.52 Hypercalcemia; E66.01 Morbid (severe) obesity due to excess calories; F41.9 Anxiety disorder, unspecified; F32.A Depression, unspecified; H40.9 Unspecified glaucoma; I12.9 Hypertensive chronic kidney disease with stage 1 through stage 4 chronic kidney disease, or unspecified chronic kidney disease; N18.32 Chronic kidney disease, stage 3b; N39.490 Overflow incontinence; Z85.42 Personal history of malignant neoplasm of other parts of uterus; Z90.710 Acquired absence of both cervix and uterus; Z98.41 Cataract extraction status, right eye; Z98.42 Cataract extraction status, left eye; Z96.1 Presence of intraocular lens; Z74.01 Bed confinement status
CPT/HCPCS: 36415; 71045; 74177; 80053; 80069; 81001; 82550; 82607; 82728; 82746; 83036; 83540; 83550; 83605; 83735; 84100; 84132; 84443; 85025; 85046; 87040; 87086; 87186; 93306; 93970; 96365; 96367; 97110; 97161; 97165; 97530; 99285; A9270; J0456; J0696; J1650; J3480; J7030; J7040; Q9967